=== PATIENT | male | born 1995 | race African-American/Black ===

== ENCOUNTER 2018-11-19 17:10 | Emergency (ER) | payer SELFPAY | END 2018-11-19 18:09 | disposition home or self-care (01) | LOC: JERFT 17:10 ==

== ENCOUNTER 2022-01-11 23:43 | Emergency (ER) | payer SELFPAY ==
[2022-01-11 23:49] VITALS: BP 118/74; PULSE 70; RESP 18; TEMP 97.6; BMI 28.0
[2022-01-12] MEDS ORDERED: IBUPROFEN 600 MG TABLET (FP) PO ONE ×2 (01:11→01:38)
[2022-01-12] MEDS ORDERED: diphenhydrAMINE HCL 25 MG CAPSULE (FP) PO ONE ×2 (01:12→01:38)
[2022-01-12] MEDS ORDERED: METOCLOPRAMIDE HCL INJECTION 10 MG/2 ML VIAL IM ONE (01:12)
[2022-01-12] MEDS ORDERED: METOCLOPRAMIDE HCL INJECTION 10 MG/2 ML VIAL ONE (01:38)
== END 2022-01-12 04:19 | disposition home or self-care (01) ==
LOC: JER 23:43
PROC: 3E0233Z Introduction of Anti-inflammatory into Muscle, Percutaneous Approach (ICD-10-PCS; principal; 2022-01-11)
DX: J01.90 Acute sinusitis, unspecified (principal)
CPT/HCPCS: 0241U-QW; 70486-TC; 99284-25

== ENCOUNTER 2022-04-13 22:10 | Emergency (ER) | payer SELFPAY ==
[2022-04-13 22:40] VITALS: BMI 27.9
[2022-04-13] MEDS ORDERED: AMOX TR/POT CLAV 875MG/125MG TABLETS (FP) PO ONE (23:05)
[2022-04-13] MEDS ORDERED: AMOX TR/POT CLAV 875MG/125MG TABLETS (FP) ONE (23:13)
[2022-04-14 00:56] LABS: BASO % 0.6 % (0-2.0); HEMATOCRIT 43.5 % (35.4-49); HEMOGLOBIN 14.6 GM/dL (11.7-16.9); MCH 30.2 pg (25.7-33.7); MCHC 33.5 g/dl (32.0-35.9); MONO % 12.3 % (3.8-10.2); NEUT % 69.1 % (42.8-82.8); PLATELET COUNT 350 10^3/uL (134-434); RBC 4.84 M/mm3 (4.00-5.60); RDW 12.5 % (11.9-15.9); WHITE BLOOD COUNT 10.6 K/mm3 (4.0-10.0)
[2022-04-14] MEDS ORDERED: morphine CARPU-JECT 4 MG/1 ML DISP.SYRIN IVPUSH ONE (01:15)
[2022-04-14 01:29] LABS: ALBUMIN 4.2 g/dl (3.4-5.0); BLOOD UREA NITROGEN 10.7 mg/dL (7-18); CALCIUM 9.4 mg/dL (8.5-10.1)
[2022-04-14] MEDS ORDERED: morphine SULFATE 4 MG/ML VIAL ONE (01:30)
[2022-04-14 01:32] LABS: CREATININE 0.9 mg/dL (0.55-1.3)
[2022-04-14 01:34] LABS: BILIRUBIN,TOTAL 0.5 mg/dL (0.2-1); TOT PROT 8.5 g/dl (6.4-8.2)
[2022-04-14 02:19] VITALS: BP 134/87; PULSE 73; RESP 18; TEMP 98.3
== END 2022-04-14 02:19 | disposition short-term general hospital (02) ==
LOC: JER 22:10
PROC: 3E033GC Introduction of Other Therapeutic Substance into Peripheral Vein, Percutaneous Approach (ICD-10-PCS; principal; 2022-04-13)
DX: S61.451A Open bite of right hand, initial encounter (principal); L02.511 Cutaneous abscess of right hand; L03.113 Cellulitis of right upper limb; Y04.1XXA Assault by human bite, initial encounter
CPT/HCPCS: 36415; 73130-TC-RT-FY; 80053; 85025; 85651; 86140; 87040; 87070; 87186; 87205; 99285-25; C9803-CS; U0003; U0005

== ENCOUNTER 2024-02-24 00:39 | Emergency (ER) | payer SELFPAY ==
[2024-02-24 00:50] VITALS: BP 127/78; PULSE 70; RESP 19; TEMP 97.6; BMI 32.1
== END 2024-02-24 01:39 | disposition home or self-care (01) ==
LOC: JER 00:39
DX: S06.0X0A Concussion without loss of consciousness, initial encounter (principal); R20.2 Paresthesia of skin; W21.00XA Struck by hit or thrown ball, unspecified type, initial encounter; Y93.67 Activity, basketball
CPT/HCPCS: 99283-25